=== PATIENT | female | born 1995 | race Caucasian/White ===

== ENCOUNTER 2021-03-10 07:25 | Emergency (ER) | payer OTHER, MEDICAID ==
[~2021-03-10] VITALS: Ht 162.6 cm; Wt 65.8 kg
[2021-03-10 07:25] VITALS: BP_SYST 129
[2021-03-10] MEDS ORDERED: BACITRACIN 1 GM OINT TP ONE (08:00)
[2021-03-10] MEDS ORDERED: LIDOCAINE 1% 10 MG/ML, 20 ML MDV SUBCUT ONE (08:00)
[2021-03-10] MEDS ORDERED: DIPH-TET-PERTUS Vaccine 0.5 ML VIAL (ADACEL) I.M. ONE (08:00)
[2021-03-10] MEDS ORDERED: AMOXICILLIN/CLAVULANATE POTASSIUM 875 MG TABLET PO ONE (09:45)
[2021-03-10] MEDS ORDERED: IBUPROFEN 600 MG TABLET PO ONE (09:45)
[2021-03-10] MEDS ORDERED: AMOX-426 PO (09:53)
[2021-03-10] MEDS ORDERED: IBUP-1969 PO (09:53)
[2021-03-10 10:15] VITALS: BP_SYST 118
== END 2021-03-10 10:15 | disposition home or self-care (01) ==
LOC: SED 07:25
DX: S62.633A Displaced fracture of distal phalanx of left middle finger, initial encounter for closed fracture (principal); X50.0XXA Overexertion from strenuous movement or load, initial encounter; Y93.89 Activity, other specified; Y92.89 Other specified places as the place of occurrence of the external cause; Y99.8 Other external cause status
CPT/HCPCS: 12001; 73140; 81025; 82962; 90471; 90715; 93005; 99284; J2001